=== PATIENT | male | born 1940 | race Caucasian/White ===

== ENCOUNTER → 2018-10-06 | Outpatient (CLI) | payer MEDICARE, BC ==
[~2018-10-06] VITALS: Ht 170.2 cm; Wt 59.4 kg
[~2018-10-06] MED LIST: AMARYL4 MG PO; ASPIRIN 81M81 MG/TA2 PO; ASPIRIN E.C. 8181 MG PO; CELEXA 20MG20 MG/TAB PO; COLACE 100100 MG/CAP PO; COUMADIN 22.5 MG/TAB PO; COUMADIN 5MG5 MG/TAB PO; COUMADIN 77.5 MG/TAB PO; DIGITEK0.125 MG PO; GLUCOPHAGE850 MG/TAB PO; LANOXIN 0.120.125 MG PO; LEVEMIR FLEX100 U/ML SQ; LEVEMIR100 U/ML SQ; LIPITOR 40MG TA40 MG PO; NAMENDA 10MG TA10 MG PO; NITROSTAT0.4 MG/TAB SL; PRILOSEC 20MG20 MG PO; REMERON SOLTAB30 MG PO; TOPROL XL100 MG PO; TOPROL XL200 MG PO; ZESTRIL 5MG5 MG PO
[2018-10-06 12:07] VITALS: BP 144/83; PULSE 72
[2018-10-06 12:15] LABS: INR 1.1 (0.8-3.0); PROTHROMBIN TIME 12.6 SECONDS (9.7-12.8)
--- NOTE | 2018-10-06 13:06 | NUR ---
dr [email or web address] cancelled the procedure due to safety
== END ==
LOC: COL.RAD 10-04 09:30
PROVIDERS: Internal Medicine
DX: K86.89 Other specified diseases of pancreas (principal)